=== PATIENT | female | born 1995 | race Caucasian/White ===

== ENCOUNTER 2017-05-19 23:20 | Observation (INO) | payer OTHER ==
[~2017-05-19] VITALS: Ht 154.9 cm; Wt 57.4 kg
[2017-05-19] MEDS ORDERED: GI COCKTAIL PO STA (23:43)
[2017-05-19] MEDS ORDERED: LIDOCAINE HCL 2% VISC SOLN 20 ML UDC ONE (23:49)
[2017-05-19] MEDS ORDERED: ALUMINUM/MAGNESIUM SUSP 30 ML UDC ONE (23:49)
--- NOTE | 2017-05-19 23:50 | EMERGENCY ROOM VISIT NOTE ---
History Report prepared by Dieudonne: Alon Mcclure Under the Supervision of: Heather HernandezO. First contact with patient: 23:27 Chief Complaint: ABDOMINAL PAIN Stated Complaint: SHARP CHEST PAINS History of Present Illness The patient is a 22 year old female who presents to the Emergency Room with complaints of sharp intermittent epigastric abdominal pain that began a couple of weeks ago. She states her pain sometimes radiates to her side or back, often up into the center of her chest also. She rates her pain a 6/10 in severity. She says that her pain has been a lot more frequent lately than it was in the past weeks. Nothing makes her pain better or worse. She notes some shortness of breath when the pain occurs. She denies any fevers, chills, diaphoresis, cough, nausea, vomiting, dizziness, lightheadedness, melena, hematochezia, diarrhea, or abnormal urinary symptoms. She does not have any known medical problems. She does not take any medications. She denies any recent menstrual cycle changes. She denies any recent travel or change to her diet. She notes some increased stress recently. She is not taking control. Source of History: patient Onset: a couple of weeks ago Position: abdomen (epigastrium) Symptom Intensity: 6/10 Quality: sharp Timing: intermittent Associated Symptoms: + SOB, No fevers, No chills, No diaphoresis, No nausea , No vomiting, No melena, No hematochezia, No diarrhea, No urinary symptoms Review of Systems See HPI for pertinent positives & negatives. A total of 10 systems reviewed and were otherwise negative. Past Medical & Surgical Medical Problems: (1) Abdominal pain (2) Lesion of pancreas (3) No Known Active Medical Problems Family History Patient reports no known family medical history. Social History Smoking Status: Current Some Day Smoker Smokeless Tobacco Use: No Alcohol Use: none Drug Use: none Marital Status: single Housing Status: lives with family Occupation Status: employed Current/Historical Medications No Active Prescriptions or Reported Meds Allergies Coded Allergies: No Known Allergies (Unverified , 05/19/17) Physical Exam Vital Signs Date Time Temp Pulse Resp B/P (MAP) Pulse Ox O2 Delivery O2 Flow Rate FiO2 05/20/17 02:38 84 20 113/89 99 Room Air 05/20/17 02:13 80 16 17/67 99 Room Air 05/20/17 00:29 81 16 105/68 97 Room Air 05/19/17 23:33 96 Room Air 05/19/17 23:25 36.8 90 18 111/74 96 Room Air Physical Exam GENERAL: alert, well appearing, well nourished, no distress, non-toxic EYE EXAM: normal conjunctiva, PERRL and EOM's grossly intact OROPHARYNX: no exudate, no erythema, lips, buccal mucosa, and tongue normal and mucous membranes are moist NECK: supple, no nuchal rigidity, no adenopathy, non-tender LUNGS: Clear to auscultation. Normal chest wall mechanics, no w/r/r HEART: no murmurs, S1 normal and S2 normal, no reproducible chest wall tenderness ABDOMEN: abdomen soft, epigastric tenderness to palpation, normo-active bowel sounds, no masses, no rebound or guarding. BACK: Back is symmetrical on inspection and there is no deformity, no midline tenderness, no CVA tenderness. SKIN: no rashes and no bruising UPPER EXTREMITIES: upper extremities are grossly normal. LOWER EXTREMITIES: No pitting edema. NEURO EXAM: Normal sensorium, cranial nerves II-XII grossly intact, normal speech, no gross weakness of arms, no gross weakness of legs. Medical Decision & Procedures ER Provider Diagnostic Interpretation: Radiology results have been interpreted by the radiologist and reviewed by me. CHEST X-RAY: Chest portion: No cardiomegaly, no effusion, no focal consolidation, no wide mediastinum, no pneumothorax. Abdomen: Scattered stool. No small bowel obstruction. No free air. Per me. Laboratory Results 05/19/17 23:40 Red Blood Count 4.41, Mean Corpuscular Volume 90.0, Mean Corpuscular Hemoglobin 29.9, Mean Corpuscular Hemoglobin Concent 33.2, Mean Platelet Volume 9.0, Neutrophils (%) (Auto) 45.3, Lymphocytes (%) (Auto) 44.0, Monocytes (%) (Auto) 9.6, Eosinophils (%) (Auto) 0.8, Basophils (%) (Auto) 0.2, Neutrophils # (Auto) 4.05, Lymphocytes # (Auto) 3.93, Monocytes # (Auto) 0.86, Eosinophils # (Auto) 0.07, Basophils # (Auto) 0.02 05/19/17 23:40 Test 05/19/17 23:40 White Blood Count 8.94 K/uL (4.8-10.8) Red Blood Count 4.41 M/uL (4.2-5.4) Hemoglobin 13.2 g/dL (12.0-16.0) Hematocrit 39.7 % (37-47) Mean Corpuscular Volume 90.0 fL (80-100) Mean Corpuscular Hemoglobin 29.9 pg (25-34) Mean Corpuscular Hemoglobin Concent 33.2 g/dl (32-36) Platelet Count 354 K/uL (130-400) Mean Platelet Volume 9.0 fL (7.4-10.4) Neutrophils (%) (Auto) 45.3 % Lymphocytes (%) (Auto) 44.0 % Monocytes (%) (Auto) 9.6 % Eosinophils (%) (Auto) 0.8 % Basophils (%) (Auto) 0.2 % Neutrophils # (Auto) 4.05 K/uL (1.4-6.5) Lymphocytes # (Auto) 3.93 K/uL (1.2-3.4) Monocytes # (Auto) 0.86 K/uL (0.11-0.59) Eosinophils # (Auto) 0.07 K/uL (0-0.5) Basophils # (Auto) 0.02 K/uL (0-0.2) RDW Standard Deviation 44.0 fL (36.4-46.3) RDW Coefficient of Variation 13.3 % (11.5-14.5) Immature Granulocyte % (Auto) 0.1 % Immature Granulocyte # (Auto) 0.01 K/uL (0.00-0.02) Anion Gap 4.0 mmol/L (3-11) Est Creatinine Clear Calc Drug Dose 103.8 ml/min Estimated GFR () 144.6 Estimated GFR (Non- 124.7 BUN/Creatinine Ratio 10.1 (10-20) Calcium Level 8.8 mg/dl (8.5-10.1) Total Bilirubin 0.2 mg/dl (0.2-1) Aspartate Amino Transf (AST/SGOT) 10 U/L (15-37) Alanine Aminotransferase (ALT/SGPT) 25 U/L (12-78) Alkaline Phosphatase 104 U/L (45-117) Troponin I < 0.015 ng/ml (0-0.045) Total Protein 7.2 gm/dl (6.4-8.2) Albumin 4.1 gm/dl (3.4-5.0) Globulin 3.1 gm/dl (2.5-4.0) Albumin/Globulin Ratio 1.3 (0.9-2) Lipase 160 U/L (73-393) Human Chorionic Gonadotropin, Qual NEG (NEG) Laboratory results per my review. Medications Administered Medications (Trade) Dose Ordered Sig/Leander Route Start Time Stop Time Status Last Admin Dose Admin Al Hydroxide/Mg Hydroxide (Maalox Susp) 30 ml STK-MED ONCE .ROUTE 05/19/17 23:49 05/19/17 23:50 DC 05/19/17 23:51 30 ML Lidocaine HCl (Viscous Lidocaine 2% Soln) 20 ml STK-MED ONCE .ROUTE 05/19/17 23:49 05/19/17 23:50 DC 05/19/17 23:51 20 ML Ketorolac Tromethamine (Toradol Inj) 30 mg NOW STAT IV 05/20/17 00:50 05/20/17 00:51 DC 05/20/17 01:15 30 MG ECG Indication: abdominal pain Rate (beats per minute): 81 Rhythm: normal sinus Findings: no acute ischemic change, other (Normal intervals, normal axis) ED Course 2327: The patient was evaluated in room B10. A complete history and physical exam was performed. 2243: Ordered GI Cocktail 24 ml PO 2349: Ordered Lidocaine HCl 20 ml .ROUTE, Maalox Susp 30 ml .ROUTE 0045: After reassessment, the patient has no change in her pain. I updated her on her results. Her pain in her epigastrium feels as if it is radiating to her back now. 0050: Ordered Toradol Inj 30 mg IV 0215: Call from model technician, for similar mass found on ultrasound next to head of the pancreas. Official report from stat rad pending. 0245: Patient with persistent epigastric pain. Discussed ultrasound results. Patient already sent for CT following discussion with model technician. CT report pending at this time. Patient agreeable with plan for admission given persistent pain and abnormality noted. Will discuss with hospitalist. Medical Decision Differential diagnosis: Etiologies such as appendicitis, diverticulitis, PUD, biliary pathology, UTI, pancreatitis, obstruction, mesenteric ischemia, aortic pathology, infections, inflammatory bowel disease, renal colic, as well as others were entertained. Given persistence of epigastric and abnormality noted on US, pt admitted for additional evaluation. Pt aware of all results and need for additional work up. Labs and VS otw reassuring. No evidence for bacteremia/sepsis. Doubt acs , r/o PE with PERC, no evidence for other pulmonary pathology, doubt gi bleed, perf. No improvement with Gi cocktail or toradol. Doubt sbo, mesenteric ischemia, volvulus, or vascular pathology. Medication Reconcilliation Current Medication List: was personally reviewed by me Blood Pressure Screening Patient's blood pressure: Normal blood pressure Blood pressure disposition: Did not require urgent referral Consults Time Called: 0245 Consulting Physician: [facility] Returned Call: [address] Comer for admission. CT report still pending at this time. Impression Primary Impression: Epigastric abdominal pain Additional Impression: Abdominal mass Scribe Attestation The scribe's documentation has been prepared under my direction and personally reviewed by me in its entirety. I confirm that the note above accurately reflects all work, treatment, procedures, and medical decision making performed by me. Departure Information Dispostion Being Evaluated By Hospitalist Prescriptions No Active Prescriptions or Reported Meds Referrals No Doctor, Assigned (PCP) Forms HOME CARE DOCUMENTATION FORM, IMPORTANT VISIT INFORMATION Patient Instructions My [facility] Problem Qualifiers Additional Impression: Abdominal mass Abdominal location: epigastric Qualified Codes: R19.06 - Epigastric swelling , mass or lump
[2017-05-19 23:56] LABS: BASO % 0.2 %; BASO ABS # 0.02 K/uL (0-0.2); COMPLETE YES; EOS % 0.8 %; HEMATOCRIT 39.7 % (37-47); IG% 0.1 %; LYMPH ABS # 3.93 K/uL (1.2-3.4); MEAN CORPUSCULAR HEMOGLOBIN 29.9 pg (25-34); MEAN CORPUSCULAR HGB CONC 33.2 g/dl (32-36); MONO % 9.6 %; NEUT % 45.3 %; PLATELET COUNT 354 K/uL (130-400); RED BLOOD COUNT 4.41 M/uL (4.2-5.4); WHITE BLOOD COUNT 8.94 K/uL (4.8-10.8)
[2017-05-20 00:19] LABS: ALT/SGPT 25 U/L (12-78); AST/SGOT 10 U/L (15-37); BLOOD UREA NITROGEN 7 mg/dl (7-18); BUN/CREATININE RATIO 10.1 (10-20); CALCIUM 8.8 mg/dl (8.5-10.1); CARBON DIOXIDE 30 mmol/L (21-32); CHLORIDE 108 mmol/L (98-107); GLUCOSE 76 mg/dl (70-99); POTASSIUM 3.6 mmol/L (3.5-5.1); SODIUM 142 mmol/L (136-145)
[2017-05-20 00:24] LABS: ALB/GLOB RATIO 1.3 (0.9-2); ALKALINE PHOSPHATASE 104 U/L (45-117)
[2017-05-20 00:36] LABS: PREG INTERNAL NEGATIVE QC NEG CLEAR BACKGROUND; PREG INTERNAL POSITIVE QC POS CONTROL LINE
[2017-05-20] MEDS ORDERED: KETOROLAC TROMETHAMINE 30 MG/ML VIAL IV STA (00:50)
[2017-05-20] MEDS ORDERED: OPTIRAY 320 IV PRN (02:30)
[2017-05-20] MEDS ORDERED: FENTANYL CITRATE INJ 50 MCG/1 ML 2 ML VIAL IV STA (02:43)
[2017-05-20] MEDS ORDERED: ACETAMINOPHEN 325 MG TAB PO PRN (03:30)
[2017-05-20] MEDS ORDERED: ONDANSETRON INJ 2 MG/ML 2 ML VIAL IV PRN (03:30)
[2017-05-20] MEDS ORDERED: KETOROLAC TROMETHAMINE 15 MG/ML VIAL IV PRN (03:30)
[2017-05-20 04:10] VITALS: O2SAT 97
[2017-05-20] MEDS ORDERED: IV FLUIDS COMPLETED PRN (04:15)
[2017-05-20 04:20] VITALS: BP 110/72; PULSE 89; TEMP 37; O2SAT 95
[2017-05-20 05:13] VITALS: BP 110/72; PULSE 89; TEMP 37; Ht 154.9 cm; Wt 57.4 kg
--- NOTE | 2017-05-20 05:31 | HISTORY & PHYSICAL EXAMINATION ---
DATE OF ADMISSION: 05/20/2017 PRIMARY CARE PHYSICIAN: DICKSON Marsh. CHIEF COMPLAINT: Abdominal pain, nonspecific, for the last 2 weeks. HISTORY OF PRESENT COMPLAINT: She is a 22-year-old female with significant past medical history of anxiety/depression, not been taking any medications. Apparently, has been complaining of epigastric/lower center chest and back pain that has been going on for 2 weeks. The pain is off and on, sometimes, she feels pain on the right side of the back of the chest, sometimes the left side of back of the chest, sometimes the lower chest and sometimes at the back and sometimes in the epigastric region that goes into the back. The pain was worse yesterday evening with some shortness of breath, but no sweating. From that point, she was brought into the Emergency Room for further evaluation. At the ER, she was hemodynamically stable. Apparent blood test came out to be unremarkable, ultrasound of the gallbladder did show probable pancreatic head mass. From that point, she underwent CAT scan of the abdomen that did show a cystic/mass-like lesion in the head of the pancreas. Further details remain to be investigated, but no evidence of any acute pancreatitis, but given that lesion and also ongoing symptoms, she was admitted to medical floor for continuation of care. She denies to have any fever, chills or rigors. She denies to have nausea and/or vomiting. She does not have any problem with bowel and/or urine. Denies to have any headache, any blurred vision, numbness or tingling in the extremities. No rash involving anywhere, no adenopathy and she does not have any joint problems. PAST MEDICAL HISTORY: Only significant for anxiety/depression and has not been taking any medication for that. PAST SURGICAL HISTORY: Nothing significant. FAMILY HISTORY: Noncontributory and no family history of ischemic heart disease and/or diabetes. SOCIAL HISTORY: She is single. She lives with family. She smokes about 1 cigarette a day. She does not drink any alcohol and she has been reasonably ambulant and she does not have any issues with menstruation. ALLERGIES: NKDA. MEDICATIONS: She has not been taking any medications now, but she is planning to have a new medicine for her anxiety. PHYSICAL EXAMINATION: GENERAL: On examination in the Emergency Room, she was not having any acute pain during my examination. VITAL SIGNS: Temperature 36.8, pulse was 90 per minute, blood pressure 113/89, saturation 99% on room air. HEENT: Unremarkable. NECK: Supple. No JVD, no bruit. CHEST: Clear to auscultate bilaterally. No chest wall tenderness. ABDOMEN: Soft, benign, tender in the epigastrium and also right-hand lower mid-abdominal region. No guarding or rigidity. Bowel sounds present. RECTAL: Deferred. EXTREMITIES: Negative for any edema. MUSCULOSKELETAL: Did not show any acute arthritis involving any joint. CENTRAL NERVOUS SYSTEM: She was alert, awake, oriented x3. LABORATORY DATA: Noted today, white count was 8.94, H&H 13.2/39.7 and platelet was 354, normal differential. Sodium 142, potassium 3.6, chloride 108, carbon dioxide 13, BUN 7, creatinine 0.70. LFTs normal. Troponin was less than 0.015, lipase was 160, hCG negative. Albumin was 4.1 and protein 7.2. Ultrasound of gallbladder, as I mentioned, showed no gallstones, but it did show probable mass cyst in the adjoining area of the head of the pancreas. A CT of the abdomen and pelvis did show a mild fullness of the pancreatic head without discrete lesion identified and no tom-pancreatic mass or inflammation. Could consider further evaluation with a triple phase CT or MRI. The gallbladder was contracted. EKG was in sinus rhythm, rate of 81 per minute, normal axis and no ST-T wave changes. IMPRESSION AND PLAN: 1. Abdominal pain in the epigastrium with radiation to back. No evidence of pancreatitis at this time. CAT scan showed a pancreatic head lesion that needs to be evaluated further. The patient will be admitted to medical floor; intravenous fluids and clear liquid. Gastrointestinal consultation for possible intervention and pain medications Toradol. 2. Anxiety/depression, not been taking any medications for that. 3. Deep venous thrombosis prophylaxis: The patient is at low risk for deep venous thrombosis; put SCDs and increase ambulation. 4. Gastrointestinal prophylaxis with Protonix. 5. Code status -- She will be full code. In my clinical assessment, the beneficiary meets criteria as per CMS for 2 midnight stay in the hospital. MTDD
--- NOTE | 2017-05-20 06:57 | DIAGNOSTIC IMAGING REPORT ---
PA CHEST RADIOGRAPH AND UPRIGHT AND SUPINE AP RADIOGRAPHS OF THE ABDOMEN CLINICAL HISTORY: Epigastric pain. Chest pain. COMPARISON STUDY: No previous studies for comparison. FINDINGS: Lung volumes are normal. Lungs are clear. No pneumothorax or pleural effusion is identified. Cardiac size is normal. Mediastinal contours are normal. There is no evidence of pulmonary edema. There is no free air. The bowel gas pattern is normal. IMPRESSION: 1. No free air or evidence of bowel obstruction. 2. No acute cardiopulmonary findings. Electronically signed by: Rick Garcia M.D. 05/20/2017 6:56 AM Dictated Date/Time: 05/20/2017 6:54 AM
--- NOTE | 2017-05-20 07:07 | DIAGNOSTIC IMAGING REPORT ---
ABDOMINAL ULTRASOUND, RIGHT UPPER QUADRANT HISTORY: Epigastric pain. COMPARISON: Abdominal series May 20, 2017. FINDINGS: Liver morphology is normal. No hepatic lesions are identified. There is no biliary ductal dilatation. The gallbladder is contracted which likely accounts for apparent wall thickening. There are no gallstones. There is no pancreatic ductal dilatation. There is an apparent 4.1 x 3.7 x 2.9 cm mass-like abnormality either within or adjacent to the pancreatic head. No color flow is identified within this finding. This could be artifactual. IMPRESSION: 1. No gallstones or biliary ductal dilatation. 2. Apparent 4.1 x 3.7 x 2.9 cm mass-like abnormality either within or adjacent to the pancreatic head. Artifact is favored although this could be evaluated with CT to exclude mass. Electronically signed by: Rick Garcia M.D. 05/20/2017 7:05 AM Dictated Date/Time: 05/20/2017 6:56 AM
--- NOTE | 2017-05-20 07:18 | DIAGNOSTIC IMAGING REPORT ---
ABDOMEN AND PELVIS CT WITH IV CONTRAST CT DOSE: 335.57 mGycm HISTORY: Possible pancreatic mass seen on ultrasound. Epigastric pain. TECHNIQUE: Multiaxial CT images of the abdomen and pelvis were performed following the use of intravenous contrast. A dose lowering technique was utilized adhering to the principles of ALARA. COMPARISON STUDY: Abdominal ultrasound 05/20/2017. FINDINGS: 2 mm nodular density within the left lower lobe on image 39 likely represents atelectasis or scarring. The gallbladder is decompressed. The liver, spleen, adrenal glands, and left kidney are unremarkable. A 6 mm hypodense lesion within the upper pole the right kidney is too small to characterize but favors a cyst given the patient's age. The pancreas enhances normally. No pancreatic masses. No pancreatic duct or common bile duct dilatation. No retroperitoneal lymphadenopathy. Bladder is mildly distended. The uterus and bilateral adnexa are unremarkable. Trace pelvic free fluid. This is likely physiologic. No bowel wall thickening or obstruction. Normal appendix. IMPRESSION: 1. No evidence for pancreatic mass. 2. No bowel wall thickening or obstruction. 3. Normal appendix. Electronically signed by: Aguila Wilkerson M.D. 05/20/2017 7:16 AM Dictated Date/Time: 05/20/2017 7:11 AM
[2017-05-20 07:28] VITALS: BP 102/65; PULSE 89; TEMP 36.6; O2SAT 95
--- NOTE | 2017-05-20 07:51 | Gastrointestinal Consultation ---
Gastrointestinal Consultation Date of Consultation: May 20, 2017 Attending Physician: Gab Consulting Physician: Allie Reason for Consultation: ? pancreatic mass, epigastric pain History of Present Illness Patient is a 22 year old female w/ PMH significant for anxiety and depression who presented to the ED with SOB at rest and abdominal pain. Pt was seen and evaluated. Family is at bedside. She tells me she has been feeling short of breath x 1 weeks with pain with deep inspiration. To me, she denies any epigastric pain. However, this was her main concern on admission. Denies regurgitation, painful/difficulty swallowing, black or bloody stools. Moves her bowels without any concerns. GI was consulted for question of mass on RUQ US. CT was suggested as follow up. No fever, chills, diarrhea, constipation. ABD XR 05/20/17: No free air or evidence of bowel obstruction. No acute cardiopulmonary findings. RUQ US 05/20/17: No gallstones or biliary ductal dilatation. Apparent 4.1 x 3.7 x 2.9 cm mass-like abnormality either within or adjacent to the pancreatic head. Artifact is favored although this could be evaluated with CT to exclude mass. CT ABD 05/20/17: No evidence for pancreatic mass. No bowel wall thickening or obstruction. Normal appendix. Past Medical/Surgical History Medical Problems: (1) Abdominal mass Status: Acute (2) Epigastric abdominal pain Status: Acute Past Medical History: anxiety, depression, acne vulgaris Past Surgical History: none Family History Patient reports no known family medical history. Social History Smoking Status: Current Every Day Smoker Alcohol Use: none Drug Use: none Marital Status: single Housing Status: lives with family Occupation Status: employed Allergies Coded Allergies: No Known Allergies (Unverified , 05/19/17) Current Medications Home Meds and Scripts Medications Dose Route/Sig Max Daily Dose Days Date Category No Active Prescriptions or Reported Medications Rx Review of Systems Constitutional: No fever, No chills Respiratory: + shortness of breath, No cough Cardiac: No chest pain, No edema Abdomen: No pain, No nausea, No vomiting, No diarrhea, No constipation, No GI bleeding, No dysphagia, No odynophagia Physical Exam Date Time Temp Pulse Resp B/P (MAP) Pulse Ox O2 Delivery O2 Flow Rate FiO2 05/20/17 07:28 36.6 89 17 102/65 (77) 95 Room Air 05/20/17 05:13 37.0 89 16 110/72 Room Air 05/20/17 04:20 37.0 89 16 110/72 (85) 95 Room Air 05/20/17 04:10 86 20 98/72 97 05/20/17 02:38 84 20 113/89 99 Room Air 05/20/17 02:13 80 16 99 Room Air 05/20/17 00:29 81 16 105/68 97 Room Air 05/19/17 23:33 96 Room Air 05/19/17 23:25 36.8 90 18 111/74 96 Room Air General Appearance: no apparent distress (pt was sleeping prior to arrival, she awoke to name, appeared drowsy/disinterested on exam and family was aiding in history) Eyes: PERRL ENT: hearing grossly normal Neck: supple Respiratory/Chest: lungs clear, normal breath sounds Cardiovascular: regular rate, rhythm, no edema Abdomen: normal bowel sounds, non tender, soft, no organomegaly, no pulsatile mass Neurologic/Psych: alert, normal mood/affect, oriented x 3 Skin: normal color, no jaundice Laboratory Results Last 24 Hours Test 05/19/17 23:40 White Blood Count 8.94 K/uL Red Blood Count 4.41 M/uL Hemoglobin 13.2 g/dL Hematocrit 39.7 % Mean Corpuscular Volume 90.0 fL Mean Corpuscular Hemoglobin 29.9 pg Mean Corpuscular Hemoglobin Concent 33.2 g/dl Platelet Count 354 K/uL Mean Platelet Volume 9.0 fL Neutrophils (%) (Auto) 45.3 % Lymphocytes (%) (Auto) 44.0 % Monocytes (%) (Auto) 9.6 % Eosinophils (%) (Auto) 0.8 % Basophils (%) (Auto) 0.2 % Neutrophils # (Auto) 4.05 K/uL Lymphocytes # (Auto) 3.93 K/uL Monocytes # (Auto) 0.86 K/uL Eosinophils # (Auto) 0.07 K/uL Basophils # (Auto) 0.02 K/uL RDW Standard Deviation 44.0 fL RDW Coefficient of Variation 13.3 % Immature Granulocyte % (Auto) 0.1 % Immature Granulocyte # (Auto) 0.01 K/uL Sodium Level 142 mmol/L Potassium Level 3.6 mmol/L Chloride Level 108 mmol/L Carbon Dioxide Level 30 mmol/L Anion Gap 4.0 mmol/L Blood Urea Nitrogen 7 mg/dl Creatinine 0.70 mg/dl Est Creatinine Clear Calc Drug Dose 103.8 ml/min Estimated GFR () 144.6 Estimated GFR (Non- 124.7 BUN/Creatinine Ratio 10.1 Random Glucose 76 mg/dl Calcium Level 8.8 mg/dl Total Bilirubin 0.2 mg/dl Aspartate Amino Transf (AST/SGOT) 10 U/L Alanine Aminotransferase (ALT/SGPT) 25 U/L Alkaline Phosphatase 104 U/L Troponin I < 0.015 ng/ml Total Protein 7.2 gm/dl Albumin 4.1 gm/dl Globulin 3.1 gm/dl Albumin/Globulin Ratio 1.3 Lipase 160 U/L Human Chorionic Gonadotropin, Qual NEG Impression Patient is a 22 year old female with epigastric pain and SOB x 1 week - she was evaluated this AM and denies any abdominal pain or GI symptoms. GI was consulted as RUQ US imaging was concerning for a pancreatic head mass. CT for follow up was completed overnight. Reviewed CT with reading radiology, Dr. Wilkerson. No evidence of any lesions or masses of the pancreas. Plan - no evidence of pancreatic abnormality - no additional follow up needed - pt was denying any upper GI symptoms or abdominal pain - consider outpatient GI follow up if symptoms develop - avoid excessive use of NSAIDs - defer evaluation of SOB and pain with deep inspiration to primary service GI to sign off. Please call with any questions or concerns ATTESTATION: I have performed a history and physical examination of this patient and reviewed the electronic record. Specifically, on physical examination there is no abdominal pain and on history there is no history of significant gastrointestinal symptoms. I have discussed the case with DAHLIA Link. The above note reflects my findings, conclusions, and recommendations. Mario Kelley MD
[2017-05-20] MEDS ORDERED: PANTOprazole SOD 40 MG TAB PO SCH (09:00)
[2017-05-20] MEDS ORDERED: CYCLOBENZAPRINE HCL 5 MG TAB PO ONE (13:03)
[2017-05-20] MEDS ORDERED: CYCLOBENZAPRINE HCL 5 MG TAB PO PRN (13:15)
[2017-05-20 15:56] VITALS: BP 91/58; PULSE 74; TEMP 37; O2SAT 98
--- NOTE | 2017-05-20 16:30 | Progress Note ---
Medicine Progress Note Date & Time of Visit: May 20, 2017 at 16:20. Subjective patient evaluated in the AM, seen with parents at the bedside denies abdominal pain has intermittent pain when taking deep breaths, more in the upper back denies chest pain, dyspnea, palpitations, dizziness ambulating with no problems would like diet to be advanced affect is normal, smiling, pleasant, calm re-evaluated in the afternoon states she feels better after the Flexeril denies pain with inspiration states she is ready and would like to be discharged today denies symptoms Objective Last 8 Hrs Date Time Temp Pulse Resp B/P (MAP) Pulse Ox O2 Delivery O2 Flow Rate FiO2 05/20/17 15:56 37.0 74 18 91/58 (69) 98 Room Air 05/20/17 15:20 Room Air Physical Exam: General- oriented x 3, not in distress, speaks in sentences with no effort Head- atraumatic Eyes- EOMI, anicteric ENT- oropharynx clear Neck- supple, no JVD, no adenopathy, no thyromegaly Lungs- clear to auscultation bilaterally, no rales/.wheezes Heart- regular rhythm; no murmur, normal rate Abdomen- normal bowel sounds, soft, nontender Extremities- no pretibial edema, no calf tenderness mild tenderness left trapezius area Neuro- alert, oriented x 3; no gross focal deficits Skin- warm & dry Psych- normal affect, smiling occasionally Laboratory Results: Last 24 Hours Test 05/19/17 23:40 05/20/17 13:16 White Blood Count 8.94 K/uL Red Blood Count 4.41 M/uL Hemoglobin 13.2 g/dL Hematocrit 39.7 % Mean Corpuscular Volume 90.0 fL Mean Corpuscular Hemoglobin 29.9 pg Mean Corpuscular Hemoglobin Concent 33.2 g/dl Platelet Count 354 K/uL Mean Platelet Volume 9.0 fL Neutrophils (%) (Auto) 45.3 % Lymphocytes (%) (Auto) 44.0 % Monocytes (%) (Auto) 9.6 % Eosinophils (%) (Auto) 0.8 % Basophils (%) (Auto) 0.2 % Neutrophils # (Auto) 4.05 K/uL Lymphocytes # (Auto) 3.93 K/uL Monocytes # (Auto) 0.86 K/uL Eosinophils # (Auto) 0.07 K/uL Basophils # (Auto) 0.02 K/uL RDW Standard Deviation 44.0 fL RDW Coefficient of Variation 13.3 % Immature Granulocyte % (Auto) 0.1 % Immature Granulocyte # (Auto) 0.01 K/uL Sodium Level 142 mmol/L Potassium Level 3.6 mmol/L Chloride Level 108 mmol/L Carbon Dioxide Level 30 mmol/L Anion Gap 4.0 mmol/L Blood Urea Nitrogen 7 mg/dl Creatinine 0.70 mg/dl Est Creatinine Clear Calc Drug Dose 103.8 ml/min Estimated GFR () 144.6 Estimated GFR (Non- 124.7 BUN/Creatinine Ratio 10.1 Random Glucose 76 mg/dl Calcium Level 8.8 mg/dl Total Bilirubin 0.2 mg/dl Aspartate Amino Transf (AST/SGOT) 10 U/L Alanine Aminotransferase (ALT/SGPT) 25 U/L Alkaline Phosphatase 104 U/L Troponin I < 0.015 ng/ml Total Protein 7.2 gm/dl Albumin 4.1 gm/dl Globulin 3.1 gm/dl Albumin/Globulin Ratio 1.3 Lipase 160 U/L Human Chorionic Gonadotropin, Qual NEG D-Dimer < 190 ug/L FEU Assessment & Plan Abdominal pain in the epigastrium with radiation to back. -- CT abdomen: no acute findings -- GI consulted advised to avoid NSAIDs no further interventions at this time out patient GI follow up if persistent -- abdominal pain resolved Chest wall/Back pain with Inspiration -- likely muscular strain -- CXR no acute findings D dimer: negative -- given Flexeril, improved -- PRN Flexeril advised to avoid heavy lifting -- ff up with PCP in 1 week Anxiety/depression -- Sertraline recently prescribed -- patient has not taken this yet, encouraged to start taking Sertraline -- denies worsening of symptoms/suicidal ideations close outpatient ff up Disposition d/c home ff up with PCP next week Current Inpatient Medications: Current Inpatient Medications Medications (Trade) Dose Ordered Sig/Leander Route Start Time Stop Time Status Last Admin Dose Admin Ioversol (Optiray 320) 100 ml UD PRN IV 05/20/17 02:30 05/24/17 02:29 Acetaminophen (Tylenol Tab) 650 mg Q4H PRN PO 05/20/17 03:30 06/19/17 03:29 Ondansetron HCl (Zofran Inj) 4 mg Q6H PRN IV 05/20/17 03:30 06/19/17 03:29 Ketorolac Tromethamine (Toradol Inj) 15 mg Q6H PRN IV 05/20/17 03:30 05/25/17 03:29 Pantoprazole Sodium (Protonix Tab) 40 mg QAM PO 05/20/17 09:00 06/19/17 08:59 05/20/17 09:12 40 MG Miscellaneous (Iv Fluids Completed) 1 ea PRN PRN N/A 05/20/17 04:15 05/20/18 04:14 Cyclobenzaprine HCl (Flexeril Tab) 5 mg BID PRN PO 05/20/17 13:15 06/19/17 13:14
[2017-05-20] MEDS ORDERED: FLX5 PO (16:34)
--- NOTE | 2017-05-20 16:40 | Discharge Instructions ---
Discharge Instructions Date of Service May 20, 2017. Admission Reason for Admission: Abdominal Pain, Lesion Of Pancreas Discharge Discharge Diagnosis / Problem: CHEST, ABDOMINAL PAIN Discharge Goals Goal(s): Diagnostic testing, Therapeutic intervention Activity Recommendations Activity Limitations: as noted below (NO HEAVY LIFTING, STRENUOUS ACTIVITIES UNTIL RE-EVALUATED BY PRIMARY CARE PHYSICIAN) Lifting Limitations: until after follow-up appointment Exercise/Sports Limitations: until after follow-up appointment Driving or Machine Use: NO DRIVING WHILE TAKING FLEXERIL . Instructions / Follow-Up Instructions / Follow-Up CALL YOUR PRIMARY CARE PHYSICIAN OR RETURN TO ER IMMEDIATELY IF WITH RECURRENCE OF SYMPTOMS, WORSENING PAIN, SHORTNESS OF BREATH, OR SYMPTOMS OF ANXIETY/DEPRESSION. PLEASE FOLLOW UP WITH PRIMARY CARE PROVIDER DR. BUITRAGO ON WEDNESDAY MAY 24, 2017 AT 10:15AM. Current Hospital Diet Patient's current hospital diet: Regular Diet Discharge Diet Recommended Diet: Regular Diet Pending Studies Studies pending at discharge: no Medical Emergencies . Who to Call and When: Medical Emergencies: If at any time you feel your situation is an emergency, please call 911 immediately. . Non-Emergent Contact Non-Emergency issues call your: Primary Care Provider Call Non-Emergent contact if: you have a fever, your pain is not controlled, your pain is worsening, you have any medication questions . . "Provider Documentation" section prepared by Mychal De Guzman. . VTE Core Measure Inpt VTE Proph given/why not?: SCD's
[2017-05-20 16:47] VITALS: BP 91/58; PULSE 74; TEMP 37; O2SAT 98
--- NOTE | 2017-05-20 16:54 | Discharge Summary ---
Discharge Summary Date of Service May 20, 2017. Discharge Summary Admission Date: May 20, 2017 at 03:29 Discharge Date: May 20, 2017 Discharge Disposition: Home Principal Diagnosis: Chest wall/Back pain with Inspiration -- likely muscular strain Secondary Diagnoses/Problems: Please refer to hospital course below. Procedures: ABDOMEN AND PELVIS CT WITH IV CONTRAST CT DOSE: 335.57 mGycm HISTORY: Possible pancreatic mass seen on ultrasound. Epigastric pain. TECHNIQUE: Multiaxial CT images of the abdomen and pelvis were performed following the use of intravenous contrast. A dose lowering technique was utilized adhering to the principles of ALARA. COMPARISON STUDY: Abdominal ultrasound 05/20/2017. FINDINGS: 2 mm nodular density within the left lower lobe on image 39 likely represents atelectasis or scarring. The gallbladder is decompressed. The liver, spleen, adrenal glands, and left kidney are unremarkable. A 6 mm hypodense lesion within the upper pole the right kidney is too small to characterize but favors a cyst given the patient's age. The pancreas enhances normally. No pancreatic masses. No pancreatic duct or common bile duct dilatation. No retroperitoneal lymphadenopathy. Bladder is mildly distended. The uterus and bilateral adnexa are unremarkable. Trace pelvic free fluid. This is likely physiologic. No bowel wall thickening or obstruction. Normal appendix. IMPRESSION: 1. No evidence for pancreatic mass. 2. No bowel wall thickening or obstruction. 3. Normal appendix. ABDOMINAL ULTRASOUND, RIGHT UPPER QUADRANT HISTORY: Epigastric pain. COMPARISON: Abdominal series May 20, 2017. FINDINGS: Liver morphology is normal. No hepatic lesions are identified. There is no biliary ductal dilatation. The gallbladder is contracted which likely accounts for apparent wall thickening. There are no gallstones. There is no pancreatic ductal dilatation. There is an apparent 4.1 x 3.7 x 2.9 cm mass-like abnormality either within or adjacent to the pancreatic head. No color flow is identified within this finding. This could be artifactual. IMPRESSION: 1. No gallstones or biliary ductal dilatation. 2. Apparent 4.1 x 3.7 x 2.9 cm mass-like abnormality either within or adjacent to the pancreatic head. Artifact is favored although this could be evaluated with CT to exclude mass. PA CHEST RADIOGRAPH AND UPRIGHT AND SUPINE AP RADIOGRAPHS OF THE ABDOMEN CLINICAL HISTORY: Epigastric pain. Chest pain. COMPARISON STUDY: No previous studies for comparison. FINDINGS: Lung volumes are normal. Lungs are clear. No pneumothorax or pleural effusion is identified. Cardiac size is normal. Mediastinal contours are normal. There is no evidence of pulmonary edema. There is no free air. The bowel gas pattern is normal. IMPRESSION: 1. No free air or evidence of bowel obstruction. 2. No acute cardiopulmonary findings. Pending Studies/Follow-Up: Please refer to hospital course below. Medication Reconciliation New Medications: Cyclobenzaprine HCl (Cyclobenzaprine HCl) 5 Mg Tab 5 MG PO BID PRN for muscle pain for 7 Days, #14 TAB [address] while taking Cyclobenzaprine Admission Information HPI (per Admitting provider): HISTORY OF PRESENT COMPLAINT: She is a 22-year-old female with significant past medical history of anxiety/depression, not been taking any medications. Apparently, has been complaining of epigastric/lower center chest and back pain that has been going on for 2 weeks. The pain is off and on, sometimes, she feels pain on the right side of the back of the chest, sometimes the left side of back of the chest, sometimes the lower chest and sometimes at the back and sometimes in the epigastric region that goes into the back. The pain was worse yesterday evening with some shortness of breath, but no sweating. From that point, she was brought into the Emergency Room for further evaluation. At the ER, she was hemodynamically stable. Apparent blood test came out to be unremarkable, ultrasound of the gallbladder did show probable pancreatic head mass. From that point, she underwent CAT scan of the abdomen that did show a cystic/mass-like lesion in the head of the pancreas. Further details remain to be investigated, but no evidence of any acute pancreatitis, but given that lesion and also ongoing symptoms, she was admitted to medical floor for continuation of care. She denies to have any fever, chills or rigors. She denies to have nausea and/or vomiting. She does not have any problem with bowel and/or urine. Denies to have any headache, any blurred vision, numbness or tingling in the extremities. No rash involving anywhere, no adenopathy and she does not have any joint problems. Physical Exam (per Admitting): GENERAL: On examination in the Emergency Room, she was not having any acute pain during my examination. VITAL SIGNS: Temperature 36.8, pulse was 90 per minute, blood pressure 113/89, saturation 99% on room air. HEENT: Unremarkable. NECK: Supple. No JVD, no bruit. CHEST: Clear to auscultate bilaterally. No chest wall tenderness. ABDOMEN: Soft, benign, tender in the epigastrium and also right-hand lower mid-abdominal region. No guarding or rigidity. Bowel sounds present. RECTAL: Deferred. EXTREMITIES: Negative for any edema. MUSCULOSKELETAL: Did not show any acute arthritis involving any joint. CENTRAL NERVOUS SYSTEM: She was alert, awake, oriented x3. Hospital Course Chest wall/Back pain with Inspiration -- likely muscular strain -- CXR no acute findings D dimer: negative -- given Flexeril, significantly improved -- PRN Flexeril advised to avoid heavy lifting -- ff up with PCP in 1 week Abdominal pain in the epigastrium with radiation to back -- CT abdomen: no acute findings -- GI consulted reviewed CT abdomen, no pancreatic mass advised to avoid NSAIDs no further interventions at this time out patient GI follow up if persistent -- abdominal pain resolved Anxiety/depression -- Sertraline recently prescribed -- patient has not taken this yet, encouraged to start taking Sertraline and seek medical help immediately if depression/anxiety symptoms are worsening she verbalized understanding -- denies worsening of symptoms/suicidal ideations close outpatient ff up Disposition d/c home ff up with PCP next week Total time spent on discharge = 35 minutes This includes examination of the patient, discharge planning, medication reconciliation, and communication with other providers. Discharge Instructions Discharge Instructions Date of Service May 20, 2017. Admission Reason for Admission: Abdominal Pain, Lesion Of Pancreas Discharge Discharge Diagnosis / Problem: CHEST, ABDOMINAL PAIN Discharge Goals Goal(s): Diagnostic testing, Therapeutic intervention Activity Recommendations Activity Limitations: as noted below (NO HEAVY LIFTING, STRENUOUS ACTIVITIES UNTIL RE-EVALUATED BY PRIMARY CARE PHYSICIAN) Lifting Limitations: until after follow-up appointment Exercise/Sports Limitations: until after follow-up appointment Driving or Machine Use: NO DRIVING WHILE TAKING FLEXERIL . Instructions / Follow-Up Instructions / Follow-Up CALL YOUR PRIMARY CARE PHYSICIAN OR RETURN TO ER IMMEDIATELY IF WITH RECURRENCE OF SYMPTOMS, WORSENING PAIN, SHORTNESS OF BREATH, OR SYMPTOMS OF ANXIETY/DEPRESSION. PLEASE FOLLOW UP WITH PRIMARY CARE PROVIDER DR. BUITRAGO ON WEDNESDAY MAY 24, 2017 AT 10:15AM. Current Hospital Diet Patient's current hospital diet: Regular Diet Discharge Diet Recommended Diet: Regular Diet Pending Studies Studies pending at discharge: no Medical Emergencies . Who to Call and When: Medical Emergencies: If at any time you feel your situation is an emergency, please call 911 immediately. . Non-Emergent Contact Non-Emergency issues call your: Primary Care Provider Call Non-Emergent contact if: you have a fever, your pain is not controlled, your pain is worsening, you have any medication questions . . "Provider Documentation" section prepared by Mychal De Guzman. . VTE Core Measure Inpt VTE Proph given/why not?: SCD's
== END 2017-05-20 17:22 | disposition home or self-care (01) ==
LOC: C.EDB 23:22 → C.MSW 05-20 03:29 → ENRESERV 05-20 03:58
PROVIDERS: ADMIT Internal Medicine; ATTEND Internal Medicine
DX: R07.89 Other chest pain (principal); R10.13 Epigastric pain; F17.210 Nicotine dependence, cigarettes, uncomplicated; F41.9 Anxiety disorder, unspecified; F32.9 Major depressive disorder, single episode, unspecified; Z79.899 Other long term (current) drug therapy